=== PATIENT | male | born 1995 | race Two or more races ===

== ENCOUNTER 2022-10-02 17:03 | Emergency (ER) | payer OTHER ==
[~2022-10-02] VITALS: Ht 182.9 cm; Wt 86.2 kg
[~2022-10-02 17:03] MED LIST: ZITHROMAX100 MG/51 PO; [UNRECOGNIZED DRUG - OTHER] PO
== END 2022-10-02 20:13 | disposition home or self-care (01) ==
LOC: ER 17:03
DX: M79.674 Pain in right toe(s) (principal)